=== PATIENT | male | born 1935 | race Caucasian/White ===

== ENCOUNTER → 2016-06-27 15:00 | Outpatient (CLI) | payer MEDICARE ==
[2012-11-26 08:44] VITALS: BMI 26.6
[~2016-06-27 15:00] MED LIST: ASPIRIN 81 MG E81 MG PO; NORCO 10/325 TA1 TA1 PO; ZEBETA5 MG
== END | disposition home or self-care (01) ==
LOC: D.US 15:00
DX: I65.23 Occlusion and stenosis of bilateral carotid arteries (principal)

== ENCOUNTER → 2016-09-26 15:19 | Outpatient (CLI) | payer MEDICARE ==
[2012-11-26 08:44] VITALS: BMI 26.6
== END | disposition home or self-care (01) ==
LOC: D.CT 15:19
DX: G45.9 Transient cerebral ischemic attack, unspecified (principal); R55 Syncope and collapse; R42 Dizziness and giddiness; M54.12 Radiculopathy, cervical region

== ENCOUNTER → 2017-07-04 14:29 | Outpatient (CLI) | payer MEDICARE ==
[2012-11-26 08:44] VITALS: BMI 26.6
== END | disposition home or self-care (01) ==
LOC: D.US 14:29
DX: I65.23 Occlusion and stenosis of bilateral carotid arteries (principal)

== ENCOUNTER 2017-11-07 12:29 | Observation (INO) | payer MEDICARE ==
[~2017-11-07] VITALS: Ht 177.8 cm; Wt 79.4 kg
--- NOTE | ~2017-11-07 | EC ---
PATIENT:FELIPE PEÑA JR DATE OF SERVICE: 11/07/17 SEX: M MEDICAL RECORD: [id number] DATE OF : 31 LOCATION:D.M2 D.210 AGE OF PATIENT: 82 ADMISSION DATE: 11/07/17 REFERRING PHYSICIAN: INTERPRETING PHYSICIAN: WAQAS LOPEZ MD ECHOCARDIOGRAM REPORT ECHO CHARGES 4 ECHO COMPLETE Date: 11/08/17 CLINICAL DIAGNOSIS: SYNCOPE ECHOCARDIOGRAPHIC MEASUREMENTS (adult normal given) AC root (d.<3.7cm) 3.1 cm LV Septum d (<1.2 cm> 1.5 cm Valve Excursion 1.1 cm LV Septum (systole) 1.6 cm Left Atria (s.<4.0cm> 3.6 cm LVPW d(<1.2cm) 1.0 cm RV (d.<2.3cm) 2.7 cm LVPW (sytole) 1.3 cm LV diastole(<5.6CM) 4.9 cm MV E-F(>70mm/sec) cm LV systole 3.8 cm LVOT Diameter 2.2 cm MV exc.(>10mm) cm Est.ejection fraction (50-75%) % DOPPLER: LVIT cm/sec A 51 cm/sec E 103 cm/sec LA cm/sec RVSP 18.9 mmHg LVOT 97 cm/sec AOP1/2T m/s Asc. Ao 158 cm/sec RVOT 68 cm/sec RA cm/sec PA 81 cm/sec AV Gradient Peak 10.0 mmHg AV Mean 5.8 mmHg AV Area 2.6 cm MV Gradient Peak 4.2 mmHg MV Mean 1.3 mmHg MV Area cm COMMENTS: Box Truck Driver: Natalie TATUM Dealer Relationship Manager: 1 Dr. Lopez TAPE# PACS Pericardial Effusion N DATE OF SERVICE: 11/08/2017 ECHOCARDIOGRAM DATE OF SERVICE: 11/08/2017 FINDINGS: 1. Left ventricular chamber size is within normal limits. Left ventricular systolic function is normal. Overall ejection fraction estimated at 50%. 2. Left atrium is within normal limits. Right atrium and right ventricular ECHOCARDIOGRAM REPORT [id number] FELIPE PEÑA JR chamber sizes are mildly dilated. 3. Valvular structures have normal structure and motion. 4. Doppler interrogation reveals only trace tricuspid regurgitation, no other valvular insufficiency or stenosis. 5. No evidence of pericardial effusion or left ventricular thrombus. TRANSINT:[id number] Voice Confirmation ID: [id number] DOCUMENT ID: [id number] WAQAS LOPEZ MD at 1722 CC: [id number] DICTATION DATE: 11/08/17 1534 SUPPORT MANAGER: 11/08/17 1541 ADM IN [facility] [address] [place] [address]
[2017-11-07 12:40] VITALS: BP 104/67
[2017-11-07 13:43] LABS: ALBUMIN 3.1 g/dL (3.4-5.0); ANION GAP 13.3 mmol/L (8-16); BASOPHILS 0.2 % (0-2); BILIRUBIN - TOTAL 0.75 mg/dL (0.2-1.3); CALCIUM 8.6 mg/dL (8.5-10.1); CARBON DIOXIDE 28.7 mmol/L (21.0-32.0); CREATININE - SERUM 1.3 mg/dL (0.6-1.3); EOSINOPHILS 1.9 % (0-7); HEMATOCRIT 38.6 % (42.0-54.0); HEMOGLOBIN 13.5 g/dL (13.5-17.5); IMMATURE GRANULOCYTES 0.2 % (0-5); LYMPHOCYTES 12.4 % (15-50); MCH 31.9 pg (26.0-34.0); MCV 91.3 fL (80.0-100.0); MEAN PLATELET VOLUME 10.4 fL (7.4-10.4); MONOCYTES 11.2 % (2-11); NEUTROPHILS 74.1 % (40-80); PLATELET COUNT 124 10x3/uL (130-400); RBC 4.23 10x6/uL (4.20-6.10); WBC 5.3 10x3/uL (4.8-10.8)
[2017-11-07 13:50] VITALS: BP 121/66
[2017-11-07 14:03] LABS: TROPONIN-I 0.077 ng/mL (0.000-0.060)
[2017-11-07 14:22] LABS: APPEARANCE HAZY (CLEAR); BILIRUBIN NEGATIVE (NEGATIVE); COLOR YELLOW (YELLOW); GLUCOSE NEGATIVE (NEGATIVE); KETONE NEGATIVE (NEGATIVE); NITRITE NEGATIVE (NEGATIVE); PROTEIN NEGATIVE (NEGATIVE); SPECIFIC GRAVITY 1.015 (1.005-1.020); UROBILINOGEN NORMAL (NORMAL)
[2017-11-07 15:44] VITALS: BP 148/72; BMI 25.1
[2017-11-07 16:01] LABS: CKMB 2.6 U/L (0.0-3.6); CREATINE KINASE 66 UL (21-232)
[2017-11-07 16:18] LABS: TROPONIN-I 0.076 ng/mL (0.000-0.060)
[2017-11-07 20:00] VITALS: BP 115/48
[2017-11-07 21:31] LABS: CKMB 1.3 U/L (0.0-3.6); CREATINE KINASE 81 UL (21-232)
[2017-11-07 21:34] LABS: TROPONIN-I 0.104 ng/mL (0.000-0.060)
[2017-11-08 02:55] LABS: BASOPHILS 0.1 % (0-2); EOSINOPHILS 0.1 % (0-7); HEMATOCRIT 33.8 % (42.0-54.0); HEMOGLOBIN 11.8 g/dL (13.5-17.5); IMMATURE GRANULOCYTES 0.3 % (0-5); MCH 31.6 pg (26.0-34.0); MCHC 34.9 g/dL (31.0-37.0); MCV 90.6 fL (80.0-100.0); MEAN PLATELET VOLUME 9.6 fL (7.4-10.4); MONOCYTES 9.7 % (2-11); NEUTROPHILS 77.8 % (40-80); PLATELET COUNT 103 10x3/uL (130-400); RBC 3.73 10x6/uL (4.20-6.10); RDW 12.9 % (11.5-14.5); WBC 11.6 10x3/uL (4.8-10.8)
[2017-11-08 03:37] LABS: ALBUMIN 2.6 g/dL (3.4-5.0); ALKALINE PHOSPHATASE 84 U/L (46-116); ALT (SGPT) 28 U/L (10-68); BILIRUBIN - TOTAL 1.42 mg/dL (0.2-1.3); CALCIUM 7.8 mg/dL (8.5-10.1); CARBON DIOXIDE 27.4 mmol/L (21.0-32.0); CHLORIDE - SERUM 104 mmol/L (98-107); CKMB 0.7 U/L (0.0-3.6); CREATINE KINASE 69 UL (21-232); CREATININE - SERUM 1.2 mg/dL (0.6-1.3); GLUCOSE 141 mg/dL (74-106); MAGNESIUM - SERUM 1.5 mg/dL (1.8-2.4); PROTEIN - SERUM 5.9 g/dL (6.4-8.2); SODIUM 140 mmol/L (136-145); eGFR NON AFRICAN AMERICAN 61 mL/min (90-120)
[2017-11-08 03:40] LABS: CALC OSMOLALITY 284 mosm/kg (275-300); POTASSIUM - SERUM 3.3 mmol/L (3.5-5.1); UREA NITROGEN 24 mg/dL (7-18)
[2017-11-08 04:00] VITALS: BP 100/50
[2017-11-08 07:57] VITALS: BP 103/46
[2017-11-08 12:50] VITALS: Ht 177.8 cm; Wt 79.4 kg
[2017-11-08 13:35] LABS: ALBUMIN 2.7 g/dL (3.4-5.0); ANION GAP 8.9 mmol/L (8-16); BILIRUBIN - TOTAL 1.38 mg/dL (0.2-1.3); CALCIUM 7.9 mg/dL (8.5-10.1); CREATININE - SERUM 1.1 mg/dL (0.6-1.3); PROTEIN - SERUM 6.1 g/dL (6.4-8.2)
[2017-11-08 13:46] LABS: POTASSIUM - SERUM 3.9 mmol/L (3.5-5.1)
[2017-11-08 15:48] VITALS: BP 115/56
[2017-11-08] MEDS ORDERED: LEVAQUIN750 MG PO (16:23)
== END 2017-11-08 17:45 | disposition home or self-care (01) ==
LOC: D.ER 12:29 → OBSVTIME 14:09 → D.M2 14:09 → D.EDHOLD 14:09 → D.M2 14:24
PROVIDERS: Emergency Medicine; Family Medicine
DX: R55 Syncope and collapse (principal); R79.89 Other specified abnormal findings of blood chemistry; E11.9 Type 2 diabetes mellitus without complications; I10 Essential (primary) hypertension; Z95.0 Presence of cardiac pacemaker; I25.10 Atherosclerotic heart disease of native coronary artery without angina pectoris; Z95.5 Presence of coronary angioplasty implant and graft; E78.5 Hyperlipidemia, unspecified; Z87.891 Personal history of nicotine dependence

== ENCOUNTER → 2018-07-09 13:58 | Outpatient (CLI) | payer MEDICARE ==
[2017-11-08 12:50] VITALS: BMI 25.1
[~2018-07-09 13:58] MED LIST changes: +LEVAQUIN750 MG PO
== END | disposition home or self-care (01) ==
LOC: D.US 13:58
PROVIDERS: ATTEND Internal Medicine Cardiovascular Disease
DX: I65.23 Occlusion and stenosis of bilateral carotid arteries (principal)

== ENCOUNTER 2020-08-03 12:11 | Emergency (ER) | payer MEDICARE ==
[~2020-08-03] VITALS: Ht 177.8 cm; Wt 79.5 kg
[2020-08-03 12:15] VITALS: BP 139/68; Ht 177.8 cm; Wt 79.5 kg
[2020-08-03 14:07] LABS: BASOPHILS 0.4 % (0-2); EOSINOPHILS 0.7 % (0-7); HEMATOCRIT 41.8 % (42.0-54.0); HEMOGLOBIN 14.1 g/dL (13.5-17.5); LYMPHOCYTES 7.9 % (15-50); MCH 31.7 pg (26.0-34.0); MCHC 33.8 g/dL (31.0-37.0); MCV 93.8 fL (80.0-100.0); MEAN PLATELET VOLUME 7.3 fL (7.4-10.4); MONOCYTES 8.1 % (2-11); NEUTROPHILS 82.9 % (40-80); RBC 4.45 10x6/uL (4.20-6.10); RDW 13.1 % (11.5-14.5); WBC 9.9 10x3/uL (4.8-10.8)
[2020-08-03 14:12] LABS: CALC OSMOLALITY 288 mosm/kg (275-300); CALCIUM 8.7 mg/dL (8.5-10.1); CARBON DIOXIDE 26.6 mmol/L (21.0-32.0); CHLORIDE - SERUM 106 mmol/L (98-107); CREATININE - SERUM 1.6 mg/dL (0.6-1.3); GLUCOSE 130 mg/dL (74-106); POTASSIUM - SERUM 4.1 mmol/L (3.5-5.1); SODIUM 141 mmol/L (136-145); UREA NITROGEN 29 mg/dL (7-18); eGFR NON AFRICAN AMERICAN 44 mL/min (90-120)
[2020-08-03 14:15] LABS: PLATELET COUNT 124 10x3/uL (130-400)
[2020-08-03 14:22] LABS: INR 2.03 (0.85-1.17); PROTIME 21.3 SECONDS (11.6-15.0)
[2020-08-03 14:35] LABS: ALBUMIN 3.7 g/dL (3.4-5.0); ALKALINE PHOSPHATASE 88 U/L (30-120); ALT (SGPT) 18 U/L (10-68); CKMB 1.5 U/L (0.0-3.6); CREATINE KINASE 57 UL (21-232); MAGNESIUM - SERUM 2.2 mg/dL (1.8-2.4); PROTEIN - SERUM 7.5 g/dL (6.4-8.2)
== END 2020-08-03 17:45 | disposition home or self-care (01) ==
LOC: D.ER 12:11
PROVIDERS: Emergency Medicine
DX: T67.5XXA Heat exhaustion, unspecified, initial encounter (principal); R55 Syncope and collapse; E11.9 Type 2 diabetes mellitus without complications; I10 Essential (primary) hypertension